=== PATIENT | female | born 1990 | race African-American/Black ===

== ENCOUNTER 2023-07-15 23:21 | Inpatient (IN) | payer OTHER, MEDICAID ==
[~2023-07-15] VITALS: Ht 167.6 cm; Wt 117.9 kg
[2023-07-16 00:18] LABS: CHLORIDE 101 mEq/L (98-107); POTASSIUM 4.1 mEq/L (3.5-5.1); SODIUM 137 mEq/L (136-145)
[2023-07-16 00:19] LABS: CALCIUM 8.9 mg/dL (8.7-10.4); CARBON DIOXIDE 29 mEq/L (21-32)
[2023-07-16 00:23] LABS: HEMATOCRIT. 39.2 % (36.0-48.0); HEMOGLOBIN. 13.1 g/dL (12.0-16.0); MEAN CORPUSCULAR HEMOGLOBIN 30.2 pg (28.0-32.0); MEAN CORPUSCULAR HGB CONC 33.3 g/dL (31.0-37.0); MEAN CORPUSCULAR VOLUME 90.7 fL (81.0-99.0); MEAN PLATELET VOLUME 7.6 fl (7.4-10.4); PLATELET 547 x1000/uL (130-400); RED BLOOD CELL COUNT 4.32 mill/uL (4.2-5.4); RED CELL DISTRIBUTION WIDTH 13.6 % (11.6-14.6); WHITE BLOOD COUNT 12.4 x1000/uL (4.5-11.0)
[2023-07-16 00:24] LABS: CREATININE 0.9 mg/dL (0.6-1.0); GLUCOSE 125 mg/dL (70-105); UREA NITROGEN BLOOD 12 mg/dL (9-23)
[2023-07-16 00:26] LABS: ALANINE AMINOTRANSFERASE 222 IU/L (10-49); ALBUMIN 4.5 g/dL (3.2-4.8); ASPARTATE AMINOTRANSFERASE 273 IU/L (<34); BILIRUBIN TOTAL 0.5 mg/dL (0.1-1.0); PROTEIN TOTAL 7.4 g/dL (6.0-8.3)
[2023-07-16 00:37] LABS: DIFFERENTIAL COMMENT 1
[2023-07-16 01:58] LABS: CLARITY URINE CLOUDY (CLEAR); COLOR URINE YELLOW (YELLOW); GLUCOSE URINE NEGATIVE (NEGATIVE); KETONES URINE TRACE (NEGATIVE); LEUKOCYTE ESTERASE URINE 2+ (NEGATIVE); NITRITE URINE NEGATIVE (NEGATIVE); OCCULT BLOOD URINE NEGATIVE (NEGATIVE); PROTEIN URINE TRACE (NEGATIVE); SPECIFIC GRAVITY URINE 1.021 (1.005-1.030); UROBILINOGEN URINE 0.2 E.U./dL (0.2-1.0)
[2023-07-16] MEDS: SODIUM CHLORIDE 0.9% 1,000 ML IV ONE (03:30)
[2023-07-16] MEDS: MORPHINE SULFATE 4 MG/ML INJ (FOR IV/IM USE) IV STA (03:30)
[2023-07-16] MEDS: ONDANSETRON HCL 4MG/2ML INJ IV STA (03:30)
[2023-07-16 04:33] LABS: HCG SCREEN NEGATIVE
[2023-07-16] MEDS: IOHEXOL-300 100 ML BOTTLE ONE (05:32)
[2023-07-16 08:35] LABS: SQUAMOUS EPITHELIAL CELL URINE 2+ /lpf (RARE/1+)
[2023-07-16 08:35] LABS: PLATELET ESTIMATE INCREASED
[2023-07-16 08:37] LABS: BACTERIA URINE 2+
[2023-07-16 08:39] LABS: RBC URINE 0-2 /hpf (0-2)
[2023-07-16] MEDS ORDERED: GUAIFENESIN 200MG/10ML SUGAR FREE UDC PO PRN (09:45)
[2023-07-16] MEDS ORDERED: MAGNESIUM/ALUMINUM HYDROXIDE/SIMETHICONE 30ML UDC PO PRN (09:45)
[2023-07-16] MEDS ORDERED: CLONIDINE 0.1MG TABLET PO PRN (09:45)
[2023-07-16] MEDS ORDERED: NA PHOS,M-B/NA PHOS,DI-BA ENEMA 118ML PR PRN (09:45)
[2023-07-16] MEDS ORDERED: DOCUSATE SODIUM 100MG CAPSULE PO PRN (09:45)
[2023-07-16] MEDS ORDERED: ONDANSETRON HCL 4MG/2ML INJ IV PRN (09:45)
[2023-07-16] MEDS ORDERED: ACETAMINOPHEN 325MG TABLET PO PRN ×2 (09:45)
[2023-07-16] MEDS ORDERED: IPRATROPIUM/ALBUTEROL 0.5-3(2.5)MG/3ML NEB HHN PRN (09:45)
[2023-07-16] MEDS: SODIUM CHLORIDE 0.9% 1,000 ML IV SCH (10:21)
[2023-07-16 12:27] LABS: BASOPHILS % 0.1 % (0.0-2.0); EOSINOPHILS % 1.5 % (0.0-5.0); HEMATOCRIT. 37.6 % (36.0-48.0); HEMOGLOBIN. 12.5 g/dL (12.0-16.0); LYMPHOCYTES % 11.7 % (20.0-50.0); MEAN CORPUSCULAR HEMOGLOBIN 29.8 pg (28.0-32.0); MEAN CORPUSCULAR HGB CONC 33.4 g/dL (31.0-37.0); MEAN CORPUSCULAR VOLUME 89.2 fL (81.0-99.0); MEAN PLATELET VOLUME 7.5 fl (7.4-10.4); MONOCYTES % 5.9 % (2.0-8.0); NEUTROPHILS % 80.8 % (40.0-76.0); PLATELET 472 x1000/uL (130-400); RED BLOOD CELL COUNT 4.21 mill/uL (4.2-5.4); RED CELL DISTRIBUTION WIDTH 13.8 % (11.6-14.6); WHITE BLOOD COUNT 9.7 x1000/uL (4.5-11.0)
[2023-07-16 12:36] LABS: CALCIUM 8.2 mg/dL (8.7-10.4); CARBON DIOXIDE 25 mEq/L (21-32); CHLORIDE 104 mEq/L (98-107); POTASSIUM 3.4 mEq/L (3.5-5.1); SODIUM 136 mEq/L (136-145)
[2023-07-16 12:41] LABS: CREATININE 0.8 mg/dL (0.6-1.0); GLUCOSE 97 mg/dL (70-105)
[2023-07-16 12:42] LABS: UREA NITROGEN BLOOD 9 mg/dL (9-23)
[2023-07-16 12:43] LABS: ALANINE AMINOTRANSFERASE 141 IU/L (10-49); ASPARTATE AMINOTRANSFERASE 90 IU/L (<34)
[2023-07-16 12:44] LABS: BILIRUBIN TOTAL 0.7 mg/dL (0.1-1.0); PROTEIN TOTAL 6.6 g/dL (6.0-8.3)
[2023-07-16 12:47] LABS: T4 FREE 1.08 ng/dL (0.89-1.76); THYROID STIMULATING HORMONE 1.55 uIU/mL (0.55-4.78)
[2023-07-16 15:45] VITALS: BP 130/84; PULSE 91; RESP 16; TEMP 97.9
[2023-07-16 15:47] VITALS: BP 130/84; PULSE 91; RESP 16; TEMP 97
[2023-07-16 16:00] VITALS: BP 130/84; PULSE 91; RESP 16; TEMP 97.9
[2023-07-16] MEDS: POTASSIUM CHLORIDE 20MEQ TABLET SR PO NR (16:07)
[2023-07-16 18:53] VITALS: BP 130/70; PULSE 90; TEMP 98; O2SAT 98
[2023-07-17 13:05] LABS: *AMPHETAMINES SCREEN URINE NEGATIVE (NEGATIVE); *BARBITURATES SCREEN URINE NEGATIVE (NEGATIVE); *BENZODIAZEPINES SCREEN URINE NEGATIVE (NEGATIVE); *COCAINE SCREEN URINE NEGATIVE (NEGATIVE); CANNABINOID URINE SCREEN NEGATIVE (NEGATIVE); ECSTASY MDMA SCREEN URINE NEGATIVE (NEGATIVE); METHADONE URINE SCREEN NEGATIVE (NEGATIVE); OPIATES URINE SCREEN NEGATIVE (NEGATIVE); PHENCYCLIDINE URINE SCREEN NEGATIVE (NEGATIVE)
== END 2023-07-16 20:47 | disposition home or self-care (01) | DRG 871 ==
LOC: ER 23:21 → 6WST 07-16 15:34
PROVIDERS: ADMIT Preventive Medicine Clinical Informatics; ATTEND Preventive Medicine Clinical Informatics
DX: A41.9 Sepsis, unspecified organism (principal); K85.10 Biliary acute pancreatitis without necrosis or infection; E87.6 Hypokalemia; R74.01 Elevation of levels of liver transaminase levels; R74.8 Abnormal levels of other serum enzymes; K80.50 Calculus of bile duct without cholangitis or cholecystitis without obstruction; Z79.899 Other long term (current) drug therapy
CPT/HCPCS: 36415; 74177; 74181; 76705; 80053; 80305; 81003; 84439; 84443; 84703; 85025; 93005; 99285; J2270; J2405; J7030; Q9967